=== PATIENT | female | born 1995 | race Caucasian/White ===

== ENCOUNTER 2019-08-03 17:43 | Observation (INO) | payer MEDICAID ==
[~2019-08-03] VITALS: Ht 144.8 cm; Wt 78.5 kg
[2019-08-03 18:04] VITALS: BP 104/63
== END 2019-08-03 20:00 | disposition home or self-care (01) ==
LOC: MLD 17:43
PROVIDERS: ADMIT Obstetrics & Gynecology; ATTEND Obstetrics & Gynecology
DX: O26.893 Other specified pregnancy related conditions, third trimester (principal); R10.9 Unspecified abdominal pain; Z3A.39 39 weeks gestation of pregnancy
CPT/HCPCS: 81000; G0378

== ENCOUNTER 2019-08-05 04:20 | Inpatient (IN) | payer MEDICAID ==
[~2019-08-05] VITALS: Ht 144.8 cm; Wt 78.5 kg
[2019-08-05 05:02] VITALS: BP 110/73
[2019-08-05] MEDS ORDERED: LACTATED RINGERS 1,000 ML IV SCH (05:13)
[2019-08-05] MEDS ORDERED: PROMETHAZINE 25 MG/ML VIAL IVP PRN (05:15)
[2019-08-05] MEDS ORDERED: METHYLERGONOVINE 0.2 MG/ML AMP IM PRN ×2 (05:15→23:30)
[2019-08-05] MEDS ORDERED: CARBOPROST 250 MCG/ML AMP IM PRN (05:15)
[2019-08-05] MEDS ORDERED: NALBUPHINE 10 MG/ML AMP IVP PRN (05:15)
[2019-08-05] MEDS ORDERED: LACTATED RINGERS 500 ML IV SCH (05:25)
[2019-08-05] MEDS ORDERED: CALCIUM (05:58)
[2019-08-05] MEDS ORDERED: PREN-380 PO (05:58)
[2019-08-05] MEDS ORDERED: FERR-252 PO (05:59)
[2019-08-05 06:14] LABS: APPEARANCE,URINE CLEAR (CLEAR); BILIRUBIN,URINE NEGATIVE (NEGATIVE); BLOOD, URINE 1+ (NEGATIVE); COLOR,URINE YELLOW (YELLOW); LEUKOCYTE ESTERASE ,URINE NEGATIVE (NEGATIVE); NITRITE, URINE NEGATIVE (NEGATIVE); PH,URINE 7.5 (5.0-9.0); UGLUCOSE NEGATIVE (NEGATIVE)
[2019-08-05 06:15] LABS: BASOPHILS # (AUTO) 0.1 K/uL (0.00-0.22); BASOPHILS % (AUTO) 0.4 % (0.0-2.0); EOSINOPHILS # (AUTO) 0.1 K/uL (0-0.4); EOSINOPHILS % (AUTO) 0.5 % (0.0-4.0); HEMATOCRIT 35.7 % (36-48); HEMOGLOBIN 11.9 g/dL (12.0-16.0); LYMPHOCYTES % (AUTO) 17.3 % (20.5-51.1); MEAN CORPUSCULAR HEMOGLOBIN 30 pg (27-31); MEAN CORPUSCULAR HGB CONC 34 g/dL (33-37); MEAN CORPUSCULAR VOLUME 89.8 fL (80-94); MONOCYTES # (AUTO) 0.7 K/uL (0.8-1.0); MONOCYTES % (AUTO) 5.9 % (1.7-9.3); NEUTROPHILS # (AUTO) 8.8 K/uL (1.8-7.7); NEUTROPHILS % (AUTO) 75.9 % (42.2-75.2); PLATELET COUNT (AUTO) 289 K/uL (140-450); RED BLOOD CELL COUNT(AUTO) 3.97 MIL/uL (4.20-5.40); RED CELL DISTRIBUTION WIDTH 13.4 % (11.6-13.7); WHITE BLOOD COUNT (AUTO) 11.6 K/uL (4.8-10.8)
[2019-08-05 06:43] LABS: ALBUMIN 2.8 g/dL (3.4-5.0); ANION GAP 17.1 (8-16); CARBON DIOXIDE 20.9 mmol/L (21-32); CREATININE 0.5 mg/dL (0.6-1.3); TOTAL BILIRUBIN 0.3 mg/dL (0.0-1.0)
[2019-08-05] MEDS ORDERED: OXYTOCIN 20 UNITS in LACTATED RINGERS 1,000 ML IV SCH (09:00)
--- NOTE | 2019-08-05 09:05 | NUR ---
PATIENT HAS BEEN SCREENED AND CATEGORIZED LOW NUTRITION RISK. PATIENT WILL BE SEEN WITHIN 7 DAYS OF ADMISSION. 08/12/[address]
[2019-08-05] MEDS ORDERED: OXYTOCIN 20 UNITS/LR PREMIX 1,000 ML IV ONE (09:32)
[2019-08-05] MEDS ORDERED: BENZOCAINE/MENTHOL 20%-0.5% 60 GM CAN TP PRN (23:30)
[2019-08-05] MEDS ORDERED: OXYTOCIN 10 UNITS/ML VIAL IM PRN (23:30)
[2019-08-05] MEDS ORDERED: METHYLERGONOVINE 0.2 MG TAB PO PRN (23:30)
[2019-08-05] MEDS ORDERED: MEASLES, MUMPS, AND RUBELLA 1 VIAL SQVAC PRN (23:30)
[2019-08-05] MEDS: IBUPROFEN 600 MG TAB PO PRN (23:50)
[2019-08-06 01:43] LABS: HEMOGLOBIN 10.3 g/dL (12.0-16.0)
[2019-08-06 01:44] LABS: HEMATOCRIT 30.5 % (36-48)
[2019-08-06] MEDS ORDERED: DOCUSATE SOD/SENNA 50/8.6 MG 1 TAB PO SCH (21:00)
[2019-08-06] MEDS: IBUPROFEN 600 MG TAB PO PRN (21:26)
[2019-08-06] MEDS ORDERED: INFLUENZA VACCINE QUAD 0.5 ML SYR IMVAC ONE (21:51)
[2019-08-06] MEDS ORDERED: INFLUENZA VACCINE QUAD 0.5 ML SYR IMVAC PRN (21:55)
[2019-08-07] MEDS ORDERED: DOCUSATE SOD/SENNA 50/8.6 MG 1 TAB PO SCH (04:30)
== END 2019-08-07 14:45 | disposition home or self-care (01) | DRG 560 ==
LOC: MLD 04:20 → MFCC 16:10
PROVIDERS: ADMIT Obstetrics & Gynecology; ATTEND Obstetrics & Gynecology
PROC: 10E0XZZ Delivery of Products of Conception, External Approach (ICD-10-PCS; principal; 2019-08-05)
PROC: 3E0R3BZ Introduction of Anesthetic Agent into Spinal Canal, Percutaneous Approach (ICD-10-PCS; 2019-08-05)
PROC: 00HU33Z Insertion of Infusion Device into Spinal Canal, Percutaneous Approach (ICD-10-PCS; 2019-08-05)
PROC: 0HQ9XZZ Repair Perineum Skin, External Approach (ICD-10-PCS; 2019-08-05)
PROC: 3E0234Z Introduction of Serum, Toxoid and Vaccine into Muscle, Percutaneous Approach (ICD-10-PCS; 2019-08-05)
DX: O70.0 First degree perineal laceration during delivery (principal); D62 Acute posthemorrhagic anemia; Z23 Encounter for immunization; Z37.0 Single live birth; Z3A.39 39 weeks gestation of pregnancy
CPT/HCPCS: 36415; 59409; 80053; 81001; 85018; 85025; 86592; 86886; 86900; 86901; 87086; 90715; J2590; J7120

== ENCOUNTER 2021-11-09 11:37 | Emergency (ER) | payer MEDICAID ==
[~2021-11-09] VITALS: Ht 154.9 cm; Wt 69.4 kg
[~2021-11-09 11:37] MED LIST: CALCIUM; FERR-252 PO; PREN-380 PO
[2021-11-09 11:43] VITALS: BP 123/62
--- NOTE | 2021-11-09 11:49 | NUR ---
PATIENT SENT TO LOBBY
--- NOTE | 2021-11-09 14:34 | NUR ---
NO NURSING INTERVENTIONS PROVIDED
[2021-11-09 14:35] VITALS: BP 117/72
--- NOTE | 2021-11-09 14:35 | NUR ---
Patient discharged with v/s stable. Written and verbal after care instructions ABOUT MISCARRIAGE given and explained. Patient verbalized understanding. Ambulatory with steady gait. All questions addressed prior to discharge. Advised to follow up with PMD.
== END 2021-11-09 14:35 | disposition home or self-care (01) ==
LOC: MED 11:37
DX: O03.9 Complete or unspecified spontaneous abortion without complication (principal); Z79.899 Other long term (current) drug therapy; Z91.018 Allergy to other foods
CPT/HCPCS: 36415; 76817; 81002; 81025; 84702; 86900; 86901; 99284; Q0092